=== PATIENT | male | born 1940 | race Caucasian/White ===

== ENCOUNTER 2018-03-19 21:31 | Emergency (ER) | payer MEDICARE ==
[2018-03-19] MEDS ORDERED: ONDANSETRON HCL 4 MG/2 ML VIAL ONE (21:47)
[2018-03-19 21:58] LABS: BASOPHILS % (AUTO) 0.3 % (0.0-5.0); EOSINOPHILS % (AUTO) 0.2 % (0.0-8.0); HEMATOCRIT 39.3 % (42-54); LYMPHOCYTES % (AUTO) 9.3 % (21.0-51.0); MEAN CORPUSCULAR HEMOGLOBIN 31.9 pg (27.0-33.0); MEAN CORPUSCULAR HGB CONC 34.2 g/dL (32.0-36.0); MEAN CORPUSCULAR VOLUME 93.1 fL (79-99); MONOCYTES % (AUTO) 5.8 % (3.0-13.0); NEUTROPHILS % (AUTO) 84.4 % (40.0-77.0); PLATELET COUNT (AUTO) 162 K/uL (130-400); RED BLOOD CELL COUNT(AUTO) 4.22 MIL/uL (4.50-6.20); RED CELL DISTRIBUTION WIDTH 13.1 % (11.0-15.5); WHITE BLOOD COUNT (AUTO) 9.8 K/uL (4.8-10.8)
[2018-03-19] MEDS ORDERED: SODIUM CHLORIDE 0.9% 1000ML 1,000 ML IV ONE (22:09)
[2018-03-19] MEDS ORDERED: MORPHINE SULFATE 4 MG/1ML SYG ONE (22:10)
[2018-03-19] MEDS ORDERED: METRONIDAZOLE 500MG/100ML BAG 0 ML ONE (22:12)
[2018-03-19 22:15] LABS: CREATININE 1.1 mg/dL (0.5-1.5); POTASSIUM 4.4 mmol/L (3.5-5.1)
[2018-03-19 22:18] LABS: ALBUMIN 3.9 g/dL (3.5-5.0); BILIRUBIN,TOTAL 0.7 mg/dL (0.2-1.0); TOTAL PROTEIN, SERUM 7.4 g/dL (6.0-8.3)
[2018-03-19] MEDS ORDERED: ZOSYN 3.375GM+NS 50ML 50 ML IV ONE (22:21)
[2018-03-19] MEDS ORDERED: VANCOMYCIN 1GM+NS 250ML 250 ML IV ONE ×2 (22:22→23:07)
[2018-03-19 22:32] LABS: APPEARANCE,URINE Clear (CLEAR); BILIRUBIN,URINE Negative (NEGATIVE); COLOR,URINE Yellow (YELLOW); GLUCOSE, URINE (UA) Negative (NEGATIVE); KETONES,URINE Negative (NEGATIVE); LEUKOCYTE ESTERASE ,URINE Negative (NEGATIVE); NITRATE,URINE Negative (NEGATIVE); OCCULT BLOOD,URINE Negative (NEGATIVE); PH,URINE 6.5 (5.0-8.0); PROTEIN,URINE Negative (NEGATIVE)
[2018-03-19] MEDS ORDERED: KETOROLAC TROMETHAMINE 15MG/ML ONE (23:43)
[2018-03-20] MEDS ORDERED: ACETAMINOPHEN 650 MG SUPPOSITORY RC ONE (01:14)
[2018-03-20] MEDS ORDERED: KETOROLAC TROMETHAMINE 15MG/ML ONE (02:42)
== END 2018-03-20 03:08 | disposition short-term general hospital (02) ==
LOC: EDH 21:31
DX: K57.92 Diverticulitis of intestine, part unspecified, without perforation or abscess without bleeding (principal); E78.5 Hyperlipidemia, unspecified; Z85.46 Personal history of malignant neoplasm of prostate; Z98.890 Other specified postprocedural states
CPT/HCPCS: 36415; 74176; 80053; 81003; 83605; 83690; 85025; 87040 ×2; 93005; 96365; 96366; 96367; 96375; 99285; J1885 ×2; J2270; J2405; J2543; J3370 ×2; J7030; J3490